=== PATIENT | male | born 1960 | race Hispanic/Latino ===

== ENCOUNTER 2019-11-06 15:26 | Emergency (ER) | payer BC ==
[2019-11-06] MEDS ORDERED: Acetaminophen 500 MG TAB ONE (16:20)
--- NOTE | 2019-11-06 16:58 | RAD ---
XR Knee Rt 4 View STANDARD HISTORY: Injury, right knee pain FINDINGS: There is a nondisplaced small chip fracture involving the medial aspect of the tibial plateau with fr acture line extending into the articular surface.
== END 2019-11-06 18:00 | disposition home or self-care (01) ==
LOC: ERS 15:26
DX: S82.144A Nondisplaced bicondylar fracture of right tibia, initial encounter for closed fracture (principal); I10 Essential (primary) hypertension; Z79.899 Other long term (current) drug therapy; X58.XXXA Exposure to other specified factors, initial encounter